=== PATIENT | male | born 1960 | race Caucasian/White ===

== ENCOUNTER 2022-12-27 15:26 | Outpatient (CLI) | payer BC | END 2022-12-27 15:27 | disposition home or self-care (01) | LOC: RAD 15:26 | PROVIDERS: ATTEND Internal Medicine | DX: R07.81 Pleurodynia (principal); S22.31XA Fracture of one rib, right side, initial encounter for closed fracture ==

== ENCOUNTER 2023-03-14 11:00 | Outpatient (CLI) | payer BC | END 2023-03-14 11:01 | LOC: PET 11:00 | PROVIDERS: ATTEND Internal Medicine | DX: R91.1 Solitary pulmonary nodule (principal) | CPT/HCPCS: 78815; A9552 ==

== ENCOUNTER 2023-06-13 13:33 | Outpatient (CLI) | payer BC | END 2023-06-13 13:34 | disposition home or self-care (01) | LOC: RAD 13:33 | PROVIDERS: ATTEND Internal Medicine Critical Care Medicine | DX: R06.00 Dyspnea, unspecified (principal); R91.8 Other nonspecific abnormal finding of lung field | CPT/HCPCS: 71046 ==

== ENCOUNTER 2023-09-13 10:47 | Outpatient (CLI) | payer BC | END 2023-09-13 10:48 | disposition home or self-care (01) | LOC: CT 10:47 | PROVIDERS: ATTEND Internal Medicine | DX: R91.1 Solitary pulmonary nodule (principal); R10.9 Unspecified abdominal pain; R91.8 Other nonspecific abnormal finding of lung field | CPT/HCPCS: 71250; 74177 ==

== ENCOUNTER 2024-03-01 12:03 | Outpatient (CLI) | payer BC | END 2024-03-01 12:04 | disposition home or self-care (01) | LOC: SCSMRI 12:03 | PROVIDERS: ATTEND Family Medicine | DX: M54.14 Radiculopathy, thoracic region (principal); M47.812 Spondylosis without myelopathy or radiculopathy, cervical region; M43.22 Fusion of spine, cervical region; M40.50 Lordosis, unspecified, site unspecified | CPT/HCPCS: 72040; 72072; 72146 ==

== ENCOUNTER 2025-04-17 23:39 | Observation (INO) | payer BC ==
[2025-04-18 00:21] LABS: #Basophils 0.07 10x3/uL (0.0-0.2); #Eosinophils 0.17 10x3/uL (0.0-0.7); #Monocytes 0.99 10x3/uL (0.11-0.59); #Neutrophils 9.64 10x3/uL (1.40-6.50); %Basophils 0.5 % (0.0-1.0); %Eosinophils 1.3 % (0.0-10.0); %Lymphocytes 15.0 % (21.0-51.0); %Monocytes 7.7 % (0.0-10.0); %Neutrophils 75.2 % (42.0-75.0); Hematocrit 34.6 % (42.0-52.0); Hemoglobin 10.9 g/dL (14.0-18.0); Mean Corpuscular Hemoglobin 29.4 pg (27.0-31.0); Mean Corpuscular Volume 93.3 fL (78.0-98.0); Platelet Count 280 10x3/uL (130-400); Red Blood Cell (RBC) Count 3.71 mill/uL (4.70-6.10); White Blood Cell (WBC) Count 12.84 10x3/uL (4.8-10.8)
[2025-04-18 00:34] LABS: ALT (SGPT) 8 U/L (Less than 45); AST (SGOT) 17 U/L (11-34); Albumin 3.0 g/dL (3.1-4.5); Alkaline Phosphatase 69 U/L (40-110); Anion Gap 12 mmol/L (10-20); BUN (Urea Nitrogen) 17 mg/dL (8.4-25.7); Bilirubin, Total 0.2 mg/dL (0.3-1.2); Calc. Creatinine Clearance 0 mL/min (70-130); Calcium 8.1 mg/dL (7.8-10.44); Carbon Dioxide 22 mmol/L (23-31); Chloride 107 mmol/L (98-107); Globulin 3.3 g/dL (2.4-3.5); Glucose 126 mg/dL (80-115); Lipase 52 U/L (8-78); Magnesium 1.7 mg/dL (1.6-2.6); Potassium 3.5 mmol/L (3.5-5.1); Sodium 137 mmol/L (136-145)
[2025-04-18 01:00] LABS: Bacteria/HPF None Seen HPF (None Seen); CAUTI Indications for Culture Pelvic or flank pain; Glucose, Urine (Dipstick) Normal (Negative); Leukocyte 500 Leu/uL (Negative); Protein, Urine (Dipstick) Negative (Neg-Trace); Specific Gravity, Urine 1.006 (1.002-1.036); WBC/HPF Greater than 50 HPF (0-3)
[2025-04-18 01:02] LABS: Urine Culture Reflex Yes Yes
[2025-04-18] MEDS ORDERED: cefTRIAXone (ROCEPHIN) 2 GM VIAL ONE (01:46)
[2025-04-18] MEDS ORDERED: Ondansetron PF 4 MG/2 ML Vial IVP PRN (03:01)
[2025-04-18] MEDS ORDERED: Acetaminophen 325 MG TAB PO PRN (03:01)
[2025-04-18] MEDS ORDERED: Non-Formulary Item 1 EACH (Midodrine [Midodrine] 10 MG Tab) PO PRN (03:05)
[2025-04-18] MEDS ORDERED: Senokot 8.6 MG TAB PO SCH (03:15)
[2025-04-18 03:53] LABS: #Basophils 0.05 10x3/uL (0.0-0.2); #Eosinophils 0.14 10x3/uL (0.0-0.7); #Monocytes 0.77 10x3/uL (0.11-0.59); #Neutrophils 8.29 10x3/uL (1.40-6.50); %Basophils 0.4 % (0.0-1.0); %Eosinophils 1.2 % (0.0-10.0); %Lymphocytes 19.1 % (21.0-51.0); %Monocytes 6.7 % (0.0-10.0); %Neutrophils 72.3 % (42.0-75.0); Hematocrit 33.8 % (42.0-52.0); Hemoglobin 10.6 g/dL (14.0-18.0); Mean Corpuscular Hemoglobin 29.9 pg (27.0-31.0); Mean Corpuscular Volume 95.2 fL (78.0-98.0); Platelet Count 276 10x3/uL (130-400); Red Blood Cell (RBC) Count 3.55 mill/uL (4.70-6.10); White Blood Cell (WBC) Count 11.48 10x3/uL (4.8-10.8)
[2025-04-18 04:10] LABS: Anion Gap 12 mmol/L (10-20); BUN (Urea Nitrogen) 16 mg/dL (8.4-25.7); Calc. Creatinine Clearance 0 mL/min (70-130); Calcium 7.7 mg/dL (7.8-10.44); Carbon Dioxide 19 mmol/L (23-31); Chloride 111 mmol/L (98-107); Glucose 135 mg/dL (80-115); Potassium 3.7 mmol/L (3.5-5.1); Sodium 138 mmol/L (136-145)
[2025-04-18 04:18] VITALS: BMI 22.9
[2025-04-18] MEDS: Senokot S 8.6-50 MG TAB PO SCH (04:30)
[2025-04-18] MEDS: Senokot 8.6 MG TAB PO SCH (04:52)
[2025-04-18] MEDS ORDERED: Famotidine 20 MG TAB PO PRN (07:58)
[2025-04-18] MEDS ORDERED: Pregabalin 50 MG CAP PO PRN (07:58)
[2025-04-18 11:33] VITALS: BP 99/59; TEMP 97.7
[2025-04-18] MEDS ORDERED: Senokot S 8.6-50 MG TAB PO SCH (17:00)
[2025-04-19] MEDS ORDERED: cefTRIAXone\\ROCEPHIN 1 GM in Sodium Chloride 0.9% 100 ML IVPB SCH (02:00)
== END 2025-04-18 14:15 | disposition home or self-care (01) ==
LOC: ERS 23:39 → 2NO 04-18 03:01
PROVIDERS: ADMIT Internal Medicine; ATTEND Internal Medicine
DX: I95.1 Orthostatic hypotension (principal); E78.5 Hyperlipidemia, unspecified; N31.9 Neuromuscular dysfunction of bladder, unspecified; Z88.8 Allergy status to other drugs, medicaments and biological substances; Z79.899 Other long term (current) drug therapy
CPT/HCPCS: 36415; 71045; 80053; 81001; 83605; 83690; 83735; 84484; 85025; 87040; 87077; 87086; 87186; 93005; 96361; 96365; G0378; J0696; J7030